=== PATIENT | female | born 1930 | race Caucasian/White ===

== ENCOUNTER 2016-06-03 19:44 | Inpatient (IN) | payer OTHER, MEDICARE ==
[~2016-06-03] VITALS: Ht 154.9 cm; Wt 69.0 kg
[~2016-06-03 19:44] MED LIST: ACET325T80 PO; AMLO2.5T PO; ATOR10TA PO; BENA20TA2 PO; CHOL100062 PO; CLOP75TA33 PO; CYAN10009 PO; DIVA125C PO; ESCI10TA PO; LACT1CAP57 PO; LORA0.5T PO; MULT1TAB72 PO; QUET25TA PO; TRAZ150T75 PO
[2016-06-03] MEDS ORDERED: AMLO2.5T2 PO (20:09)
[2016-06-03] MEDS ORDERED: ATOR10TA PO (20:09)
[2016-06-03] MEDS ORDERED: CYAN10009 PO (20:10)
[2016-06-03] MEDS ORDERED: CHOL100034 PO (20:10)
[2016-06-03] MEDS ORDERED: QUET25TA34 PO (20:10)
[2016-06-03] MEDS ORDERED: BENA20TA78 PO (20:10)
[2016-06-03] MEDS ORDERED: CLOP75TA2 PO (20:10)
[2016-06-03] MEDS ORDERED: DIVA125T3 PO (20:10)
[2016-06-03] MEDS ORDERED: ESCI10TA PO (20:10)
[2016-06-03] MEDS ORDERED: LORA0.5T PO (20:10)
[2016-06-03] MEDS ORDERED: ACET325T80 PO (20:10)
[2016-06-03] MEDS ORDERED: TRAZ150T75 PO (20:10)
[2016-06-03] MEDS ORDERED: [UNRECOGNIZED DRUG - OTHER] PO (20:10)
[2016-06-03] MEDS ORDERED: CLOP75TA33 PO (20:10)
[2016-06-03] MEDS ORDERED: ALBUTEROL SULFATE 2.5 MG/3 ML NEBU NEB ONE (20:30)
[2016-06-03] MEDS ORDERED: IV NORMAL SALINE 500 ML BAG IV ONE (20:30)
[2016-06-03] MEDS ORDERED: IPRATROPIUM BROMIDE 0.5 MG/2.5 ML NEBU NEB ONE (20:30)
[2016-06-03] MEDS ORDERED: IPRATROPIUM BROMIDE 0.5 MG/2.5 ML NEBU ONE (20:50)
[2016-06-03] MEDS ORDERED: ALBUTEROL SULFATE 2.5 MG/ 0.5 ML NEBU ONE (20:51)
[2016-06-03 20:59] LABS: BASOPHILS # (AUTO) 0.1 K/uL (0.0-0.2); BASOPHILS % (AUTO) 0.9 % (0.0-2.0); EOSINOPHILS % (AUTO) 0.3 % (0.0-7.0); HEMATOCRIT 37.2 % (37.0-47.0); HEMOGLOBIN 11.9 g/dL (12.0-16.0); LYMPHOCYTES # (AUTO) 0.7 K/uL (0.8-4.8); LYMPHOCYTES % (AUTO) 10.9 % (20.5-51.5); MEAN CORPUSCULAR HEMOGLOBIN 28.2 uug (27.0-31.0); MEAN CORPUSCULAR HGB CONC 32 g/dL (32.0-37.0); MEAN CORPUSCULAR VOLUME 88.6 fL (81.0-99.0); MONOCYTES # (AUTO) 0.6 K/uL (0.1-1.30); MONOCYTES % (AUTO) 9.1 % (0.0-11.0); NEUTROPHILS # (AUTO) 5.1 K/uL (1.8-8.9); NEUTROPHILS % (AUTO) 78.8 % (38.5-71.5); PLATELET COUNT (AUTO) 193 K/uL (150-450); RED CELL DISTRIBUTION WIDTH 13.5 % (11.5-14.5); WHITE BLOOD COUNT (AUTO) 6.5 K/uL (4.0-11.2)
[2016-06-03 21:07] LABS: CALCIUM 8.7 mg/dL (8.5-10.1); CREATININE 0.9 mg/dL (0.6-1.3); POTASSIUM 4.2 mmol/L (3.5-5.1)
[2016-06-03 21:18] LABS: ALBUMIN 2.3 g/dL (3.4-5.0); BILIRUBIN,DIRECT 0.2 mg/dL (0.0-0.2); BILIRUBIN,TOTAL 0.5 mg/dL (0.2-1.0); TOTAL PROTEIN, SERUM 7.2 g/dL (6.4-8.2)
[2016-06-03 21:19] LABS: LACTIC ACID 0.8 mmol/L (0.4-2.0)
[2016-06-03 21:20] LABS: TROPONIN I 0.042 ng/mL (0.00-0.056)
--- NOTE | 2016-06-03 21:29 | NUR ---
UNABLE TO ACCESS GUILLEN CATHETER BY ER STAFF MEMBERS. DR GALO AWARE
[2016-06-03] MEDS ORDERED: FUROSEMIDE 20 MG/2 ML VIAL IV ONE (21:30)
[2016-06-03] MEDS ORDERED: NITROGLYCERIN OINT 1 GM PACKET TP ONE ×2 (21:30→21:44)
[2016-06-03] MEDS ORDERED: FUROSEMIDE 40 MG/4 ML VIAL ONE (21:44)
--- NOTE | 2016-06-03 22:18 | NUR ---
Rupert pacheco in ED - 06/03/16 at [id number] GALO AWARE OF BLOOD PRESSURE. PT REFUSED TO HAVE PCXR AND HTN PILL
--- NOTE | 2016-06-03 22:46 | NUR ---
TRANSFERED TO 2ND FLOOR, TELE
[2016-06-03 23:21] VITALS: BP 123/57
[2016-06-04 04:00] VITALS: BP 115/61
[2016-06-04 07:27] LABS: BASOPHILS % (AUTO) 0.3 % (0.0-2.0); EOSINOPHILS % (AUTO) 0.4 % (0.0-7.0); HEMATOCRIT 36.5 % (37.0-47.0); HEMOGLOBIN 11.6 g/dL (12.0-16.0); LYMPHOCYTES # (AUTO) 0.4 K/uL (0.8-4.8); LYMPHOCYTES % (AUTO) 6.4 % (20.5-51.5); MEAN CORPUSCULAR HEMOGLOBIN 28.3 uug (27.0-31.0); MEAN CORPUSCULAR HGB CONC 32 g/dL (32.0-37.0); MEAN CORPUSCULAR VOLUME 89.1 fL (81.0-99.0); MONOCYTES # (AUTO) 0.7 K/uL (0.1-1.30); MONOCYTES % (AUTO) 9.7 % (0.0-11.0); NEUTROPHILS # (AUTO) 5.8 K/uL (1.8-8.9); NEUTROPHILS % (AUTO) 83.2 % (38.5-71.5); PLATELET COUNT (AUTO) 212 K/uL (150-450); RED CELL DISTRIBUTION WIDTH 13.4 % (11.5-14.5); WHITE BLOOD COUNT (AUTO) 6.9 K/uL (4.0-11.2)
[2016-06-04 07:34] LABS: CALCIUM 8.5 mg/dL (8.5-10.1); CREATININE 0.8 mg/dL (0.6-1.3); POTASSIUM 4.1 mmol/L (3.5-5.1)
[2016-06-04 08:00] VITALS: BP 111/86
--- NOTE | 2016-06-04 08:00 | NUR ---
RESTING NO RESPIRATORY DISTRESS CONTINUE ON O2 AT 3L /MIN VIA N/C HOB UP AT ALL TIME on fall and aspiration precaution bed alarm on and call madden in reach
[2016-06-04 08:42] LABS: BAND % (MANUAL) 30 % (0-10); BASOPHILS % (MANUAL) 1 % (0-2); EOSINOPHILS % (MANUAL) 1 % (0-8); LYMPHOCYTES % (MANUAL) 4 % (20-40); MONOCYTES % (MANUAL) 9 % (2-10); NEUTROPHILS % (MANUAL) 55 % (42-75)
[2016-06-04 08:43] LABS: PLATELET ESTIMATE ADEQUATE
[2016-06-04] MEDS ORDERED: LORAZEPAM 0.5 MG TABLET PO PRN (10:00)
[2016-06-04] MEDS ORDERED: ACETAMINOPHEN 325 MG TABLET PO PRN (10:00)
[2016-06-04] MEDS ORDERED: [UNRECOGNIZED DRUG - OTHER] PO SCH (10:00)
[2016-06-04] MEDS: CYANOCOBALAMIN 1,000 MCG TABLET PO SCH (11:08)
[2016-06-04] MEDS: MULTIVIT, IRON, MIN NO. 8, FA TABLET PO SCH (11:09)
[2016-06-04] MEDS: CHOLECALCIFEROL 1,000 UNIT TABLET PO SCH (11:09)
[2016-06-04] MEDS: ESCITALOPRAM OXALATE 10 MG TABLET PO SCH (11:09)
[2016-06-04] MEDS: DIVALPROEX 125 MG TABLET.DR PO SCH ×3 (11:09→17:42)
[2016-06-04] MEDS: CLOPIDOGREL 75 MG TABLET PO SCH (11:10)
[2016-06-04] MEDS: QUETIAPINE FUMARATE 25 MG TABLET PO SCH ×2 (11:10→17:42)
[2016-06-04] MEDS: BENAZEPRIL HCL 20 MG TABLET PO SCH (11:10)
[2016-06-04] MEDS: AMLODIPINE 2.5 MG TABLET PO SCH (11:10)
[2016-06-04 11:44] VITALS: BP 119/60
--- NOTE | 2016-06-04 12:00 | NUR ---
DR IRIZARRY SEE PATIENT AND LAB RESULT AND DISCUSS WITH FAMILY DAUGHTER AT BEDSIDE NEW ORDER IN CHART
[2016-06-04 16:06] VITALS: BP 112/48
--- NOTE | 2016-06-04 17:00 | NUR ---
RESTING WELL NO RESPIRATORY DISTRESS NO PAIN HEMODYNAMIC STATUS STABLE ON FALL /ASPIRATION PRECAUTION BED SAFETY MEASURE PROVIDED CALL ESPINOZA IN REACH AND FAMILY AT BEDSIDE
[2016-06-04 19:00] VITALS: BP 125/59
[2016-06-04] MEDS: TRAZODONE 100 MG TABLET PO SCH (21:00)
[2016-06-04] MEDS: Z GUARD REMEDY PASTE 57 GM TUBE TOP SCH (21:00)
[2016-06-04] MEDS: ATORVASTATIN 10 MG TABLET PO SCH (21:00)
[2016-06-05 00:05] VITALS: BP 104/50
[2016-06-05 04:00] VITALS: BP 108/52
--- NOTE | 2016-06-05 08:00 | NUR ---
Pt very confused, farsi speaking. Pt pulled out IV. Restarted IV on left hand 20 gauge. Pt had poor appetite. Lung sounds diminished on lower lobes. Noted bruising on left hip area and behind the knee bilateral. Heel floated. Pt needed assistance during breakfast. Fall precaution implemented. Bed alarm on. Pt kept on simple mask on 4 liters with saturation on 94%. Pt frequently pulling out mask encouraged family members to please put back mask on hetal unless pt is eating secondary to pt desaturates to 82% when not on simple mask oxygen - family members verbalized understanding.
[2016-06-05] MEDS: QUETIAPINE FUMARATE 25 MG TABLET PO SCH ×2 (08:54→16:47)
[2016-06-05] MEDS: DIVALPROEX 125 MG TABLET.DR PO SCH ×4 (08:54→20:48)
[2016-06-05] MEDS: MULTIVIT, IRON, MIN NO. 8, FA TABLET PO SCH (08:54)
[2016-06-05] MEDS: CHOLECALCIFEROL 1,000 UNIT TABLET PO SCH (08:55)
[2016-06-05] MEDS: CLOPIDOGREL 75 MG TABLET PO SCH (08:55)
[2016-06-05] MEDS: ESCITALOPRAM OXALATE 10 MG TABLET PO SCH (08:55)
[2016-06-05] MEDS: CYANOCOBALAMIN 1,000 MCG TABLET PO SCH (08:55)
[2016-06-05] MEDS: BENAZEPRIL HCL 20 MG TABLET PO SCH (08:57)
[2016-06-05] MEDS: AMLODIPINE 2.5 MG TABLET PO SCH (08:57)
[2016-06-05] MEDS: Z GUARD REMEDY PASTE 57 GM TUBE TOP SCH ×2 (08:59→20:49)
[2016-06-05 12:03] VITALS: BP 111/52
--- NOTE | 2016-06-05 13:00 | NUR ---
Pt too lethargic depakote held.
--- NOTE | 2016-06-05 16:00 | NUR ---
Dr Harding Notified of pt being too lethargic questionable from depakote and seroquel. Request Dr harding to change depakote to q 8 hrs instead of TID due to pharmacy protocol of timing -that TID's doses are too close to one another. Notified of diminshed lung sounds with crackles on the lower base. new order received for lasix.
[2016-06-05 16:04] VITALS: BP 104/53
[2016-06-05 16:40] LABS: BASOPHILS # (AUTO) 0.1 K/uL (0.0-0.2); BASOPHILS % (AUTO) 0.6 % (0.0-2.0); EOSINOPHILS # (AUTO) 0.2 K/uL (0.0-0.7); EOSINOPHILS % (AUTO) 1.8 % (0.0-7.0); HEMATOCRIT 34.8 % (37.0-47.0); HEMOGLOBIN 11.8 g/dL (12.0-16.0); LYMPHOCYTES # (AUTO) 0.6 K/uL (0.8-4.8); LYMPHOCYTES % (AUTO) 7.3 % (20.5-51.5); MEAN CORPUSCULAR HEMOGLOBIN 29.9 uug (27.0-31.0); MEAN CORPUSCULAR HGB CONC 34 g/dL (32.0-37.0); MEAN CORPUSCULAR VOLUME 88.5 fL (81.0-99.0); MONOCYTES # (AUTO) 0.6 K/uL (0.1-1.30); MONOCYTES % (AUTO) 7.4 % (0.0-11.0); NEUTROPHILS # (AUTO) 6.9 K/uL (1.8-8.9); NEUTROPHILS % (AUTO) 82.9 % (38.5-71.5); PLATELET COUNT (AUTO) 240 K/uL (150-450); RED BLOOD CELL COUNT(AUTO) 3.93 MIL/uL (4.20-5.40); RED CELL DISTRIBUTION WIDTH 13.3 % (11.5-14.5); WHITE BLOOD COUNT (AUTO) 8.4 K/uL (4.0-11.2)
[2016-06-05] MEDS: FUROSEMIDE 40 MG/4 ML VIAL IV SCH (16:47)
[2016-06-05 16:48] LABS: BILIRUBIN,TOTAL 0.5 mg/dL (0.2-1.0); CALCIUM 8.8 mg/dL (8.5-10.1); CREATININE 0.8 mg/dL (0.6-1.3); MAGNESIUM 2.3 mg/dL (1.8-2.4); PHOSPHOROUS 4.3 mg/dL (2.5-4.9)
--- NOTE | 2016-06-05 18:02 | NUR ---
Pt has good appetite for dinner. No fall noted this shift and IV on left hand #20 gauge remains intact - PLAN OF CARE EFFECTIVE. Pt changed diaper soaked. Lasix given earlier -unable to measure output secondary to pt is incontinent.
[2016-06-05 19:00] VITALS: BP 110/50
[2016-06-05] MEDS: ATORVASTATIN 10 MG TABLET PO SCH (20:47)
[2016-06-05] MEDS: TRAZODONE 100 MG TABLET PO SCH (20:53)
[2016-06-05 23:42] VITALS: BP 121/57
[2016-06-06 04:00] VITALS: BP 141/62
[2016-06-06] MEDS: FUROSEMIDE 40 MG/4 ML VIAL IV SCH ×2 (04:36→08:41)
[2016-06-06] MEDS: DIVALPROEX 125 MG TABLET.DR PO SCH ×3 (05:58→21:35)
[2016-06-06 07:00] LABS: BASOPHILS % (AUTO) 0.3 % (0.0-2.0); EOSINOPHILS # (AUTO) 0.1 K/uL (0.0-0.7); EOSINOPHILS % (AUTO) 1.3 % (0.0-7.0); HEMATOCRIT 38.2 % (37.0-47.0); HEMOGLOBIN 12.3 g/dL (12.0-16.0); LYMPHOCYTES # (AUTO) 0.7 K/uL (0.8-4.8); LYMPHOCYTES % (AUTO) 8.8 % (20.5-51.5); MEAN CORPUSCULAR HEMOGLOBIN 28.6 uug (27.0-31.0); MEAN CORPUSCULAR HGB CONC 32 g/dL (32.0-37.0); MEAN CORPUSCULAR VOLUME 88.7 fL (81.0-99.0); MONOCYTES # (AUTO) 0.6 K/uL (0.1-1.30); MONOCYTES % (AUTO) 7.1 % (0.0-11.0); NEUTROPHILS # (AUTO) 6.8 K/uL (1.8-8.9); NEUTROPHILS % (AUTO) 82.5 % (38.5-71.5); PLATELET COUNT (AUTO) 253 K/uL (150-450); RED CELL DISTRIBUTION WIDTH 13.4 % (11.5-14.5); WHITE BLOOD COUNT (AUTO) 8.2 K/uL (4.0-11.2)
[2016-06-06 07:01] LABS: ALBUMIN 2.1 g/dL (3.4-5.0); BILIRUBIN,TOTAL 0.4 mg/dL (0.2-1.0); CALCIUM 8.8 mg/dL (8.5-10.1); CREATININE 0.7 mg/dL (0.6-1.3); MAGNESIUM 2.1 mg/dL (1.8-2.4); TOTAL PROTEIN, SERUM 7.5 g/dL (6.4-8.2)
--- NOTE | 2016-06-06 08:00 | NUR ---
Pt confused easily be aroused to touch. Pt on simple mask @ 4liters saturation of 96%. Pt is in no acute distress. Call light is within reach.
[2016-06-06] MEDS: ESCITALOPRAM OXALATE 10 MG TABLET PO SCH (08:41)
[2016-06-06] MEDS: CLOPIDOGREL 75 MG TABLET PO SCH (08:41)
[2016-06-06] MEDS: MULTIVIT, IRON, MIN NO. 8, FA TABLET PO SCH (08:42)
[2016-06-06] MEDS: CYANOCOBALAMIN 1,000 MCG TABLET PO SCH (08:42)
[2016-06-06] MEDS: BENAZEPRIL HCL 20 MG TABLET PO SCH (08:42)
[2016-06-06] MEDS: QUETIAPINE FUMARATE 25 MG TABLET PO SCH ×2 (08:42→16:42)
[2016-06-06] MEDS: CHOLECALCIFEROL 1,000 UNIT TABLET PO SCH (08:42)
[2016-06-06] MEDS: AMLODIPINE 2.5 MG TABLET PO SCH (08:42)
[2016-06-06] MEDS: Z GUARD REMEDY PASTE 57 GM TUBE TOP SCH ×2 (08:43→21:46)
[2016-06-06 11:15] LABS: BAND % (MANUAL) 20 % (0-10); EOSINOPHILS % (MANUAL) 2 % (0-8); LYMPHOCYTES % (MANUAL) 10 % (20-40); METAMYELOCYTES % 2 % (0-1); MONOCYTES % (MANUAL) 10 % (2-10); MYELOCYTES % 1 % (0-0); NEUTROPHILS % (MANUAL) 55 % (42-75)
[2016-06-06 11:16] LABS: PLATELET ESTIMATE ADEQUATE
[2016-06-06 11:34] VITALS: BP 129/58
[2016-06-06] MEDS ORDERED: FUROSEMIDE 40 MG/4 ML VIAL IV SCH (12:00)
--- NOTE | 2016-06-06 13:30 | NUR ---
Dr Bazan here to see pt Notified of ABG result with elevated PCO2 of 73.9. No new order received and consult for respiratory called in DR OCHOA.
[2016-06-06 13:52] LABS: ABG BASE EXCESS 16.2 mmol/L; ABG HCO3 44.7 mmol/L; ABG PCO2 73.9 mmHg (35.0-45.0); ABG PO2 89.3 mmHg (75.0-100.0); ABG SITE LEFT BRACHIAL; ABG TOTAL HEMOGLOBIN 13.3 G/dL (12.0-16.0); COHb 1.2 % (0.5-1.5); MetHb 0.2 % (0.0-1.5); O2Hb 95.4 % (94.0-97.0)
--- NOTE | 2016-06-06 14:00 | NUR ---
held Depakote and Seroquel secondary to pt too lethargic.
[2016-06-06 15:01] LABS: *BILIRUBIN,URIN NEGATIVE (NEGATIVE); *BLOOD, URINE Trace-lysed (NEGATIVE); *CLARITY,URINE CLEAR (CLEAR); *COLOR,URINE YELLOW (YELLOW); *KETONES,URINE NEGATIVE (NEGATIVE); *PROTEIN,URINE NEGATIVE (NEGATIVE); *UROBILINOGEN,URINE 0.2 E.U./dl (NORMAL); LEUKOCYTE ESTERASE ,URINE NEGATIVE (NEGATIVE); NITRITE, URINE NEGATIVE (NEGATIVE); PH,URINE 5.5 (5.0-8.0); UGLUCOSE NEGATIVE (NEGATIVE)
[2016-06-06 15:39] LABS: BACTERIA,URINE MODERATE /HPF (NONE SEEN); SQUAMOUS EPITHELIAL CELL,UR FEW /HPF (NONE SEEN); WBC,URINE 0-3 /HPF (0-3)
[2016-06-06 15:44] VITALS: BP 114/56
[2016-06-06] MEDS ORDERED: ALBUTEROL SULFATE 2.5 MG/3 ML NEBU NEB PRN (17:15)
[2016-06-06] MEDS ORDERED: MAGNESIUM HYDROXIDE 30 ML LIQUID UDC PO PRN (18:00)
[2016-06-06] MEDS: ACETAzolamide SODIUM 500 MG VIAL IV SCH (18:02)
--- NOTE | 2016-06-06 18:30 | NUR ---
Pt is in no acute distress. Plan of care effective no fall and pt's pain managed with morphine as ordered.
--- NOTE | 2016-06-06 18:30 | NUR ---
Diamox given as ordered per Dr Nguyen. New orders received and carried out. Call light is within reach.
[2016-06-06 19:00] VITALS: BP 129/63
--- NOTE | 2016-06-06 19:20 | NUR ---
PATIENT AWAKE, RESPONSIVE TO VERBAL STIMULATION, NO SOB NO CHEST PAIN NOTED, ON OXYGEN THERAPHY FOR SOB, ON 6LITERS VIA MASK, OXYGEN SAT 95-96% NO COMPLAIN OF PAIN AT THIS TIME. CONT TO MONITOR.
[2016-06-06] MEDS: TRAZODONE 100 MG TABLET PO SCH (21:35)
[2016-06-06] MEDS: ATORVASTATIN 10 MG TABLET PO SCH (21:35)
[2016-06-07 04:00] VITALS: BP 125/60
[2016-06-07] MEDS: DIVALPROEX 125 MG TABLET.DR PO SCH ×3 (06:23→23:21)
[2016-06-07 06:30] LABS: BASOPHILS % (AUTO) 0.6 % (0.0-2.0); EOSINOPHILS # (AUTO) 0.2 K/uL (0.0-0.7); EOSINOPHILS % (AUTO) 2.6 % (0.0-7.0); HEMATOCRIT 40.1 % (37.0-47.0); LYMPHOCYTES # (AUTO) 0.7 K/uL (0.8-4.8); LYMPHOCYTES % (AUTO) 9.4 % (20.5-51.5); MEAN CORPUSCULAR HEMOGLOBIN 28.9 uug (27.0-31.0); MEAN CORPUSCULAR HGB CONC 32 g/dL (32.0-37.0); MEAN CORPUSCULAR VOLUME 89.2 fL (81.0-99.0); MONOCYTES # (AUTO) 0.5 K/uL (0.1-1.30); MONOCYTES % (AUTO) 6.7 % (0.0-11.0); NEUTROPHILS # (AUTO) 6.3 K/uL (1.8-8.9); NEUTROPHILS % (AUTO) 80.7 % (38.5-71.5); PLATELET COUNT (AUTO) 284 K/uL (150-450); RED CELL DISTRIBUTION WIDTH 13.4 % (11.5-14.5); WHITE BLOOD COUNT (AUTO) 7.7 K/uL (4.0-11.2)
--- NOTE | 2016-06-07 06:49 | NUR ---
PATIENT AWAKE, VERBALLY RESPONSIVE, ON OXYGEN MASK AT 6LITER, OXYGEN SAT 95-96% NO S/S OF PAIN NO SOB NO CHEST PAIN NOTED, TURN AND REPOSITION, PATIENT HAD LARGE BM KEPT CLEAN AND DRY.
[2016-06-07 07:20] LABS: ALBUMIN 2.3 g/dL (3.4-5.0); BILIRUBIN,TOTAL 0.3 mg/dL (0.2-1.0); CALCIUM 9.1 mg/dL (8.5-10.1); CREATININE 0.7 mg/dL (0.6-1.3); MAGNESIUM 2.4 mg/dL (1.8-2.4); PHOSPHOROUS 4.8 mg/dL (2.5-4.9); POTASSIUM 4.2 mmol/L (3.5-5.1); TOTAL PROTEIN, SERUM 7.1 g/dL (6.4-8.2)
[2016-06-07 07:30] LABS: THYROID STIMULATING HORMONE 0.914 mIU/mL (0.358-3.740)
[2016-06-07 07:34] LABS: FOLIC ACID 12.4 NG/ML (8.6-58.9)
--- NOTE | 2016-06-07 08:00 | NUR ---
Lung sounds much clearer from yesterday. Able to taper oxygen to 2 liters via n/c with saturation of 91- 92%. Mittens not used. Iv on left hand intact. Call light is within reach. Pt easily aroused by touch. Pt had good appetite. Call light is within reach.
[2016-06-07] MEDS: ESCITALOPRAM OXALATE 10 MG TABLET PO SCH (08:50)
[2016-06-07] MEDS: CLOPIDOGREL 75 MG TABLET PO SCH (08:50)
[2016-06-07] MEDS: MULTIVIT, IRON, MIN NO. 8, FA TABLET PO SCH (08:50)
[2016-06-07] MEDS: QUETIAPINE FUMARATE 25 MG TABLET PO SCH ×3 (08:50→16:43)
[2016-06-07] MEDS: CYANOCOBALAMIN 1,000 MCG TABLET PO SCH (08:50)
[2016-06-07] MEDS: CHOLECALCIFEROL 1,000 UNIT TABLET PO SCH (08:50)
[2016-06-07] MEDS: BENAZEPRIL HCL 20 MG TABLET PO SCH (08:52)
[2016-06-07] MEDS: AMLODIPINE 2.5 MG TABLET PO SCH (08:52)
[2016-06-07] MEDS: ACETAzolamide SODIUM 500 MG VIAL IV SCH (08:55)
[2016-06-07] MEDS ORDERED: FUROSEMIDE 40 MG/4 ML VIAL IV SCH ×2 (09:00)
[2016-06-07] MEDS: Z GUARD REMEDY PASTE 57 GM TUBE TOP SCH ×2 (09:04→20:45)
[2016-06-07 11:36] VITALS: BP 115/55
[2016-06-07 16:13] VITALS: BP 106/63
--- NOTE | 2016-06-07 17:38 | NUR ---
ZOFRAN, MORPHINE PROTONIX - taken out of pyxis by shift superintendent
--- NOTE | 2016-06-07 18:46 | NUR ---
Pt is in no acute distress. Pt's psych meds held secondary to pt was too lethargic throughout day. Pt more awake now and attempting to pull IV and taking out oxygen. Restarted soft mittens. Call light is within reach.
--- NOTE | 2016-06-07 19:00 | NUR ---
PATIENT AWAKE , RESPONSE TO VERBAL AND TACTILE STIMULI, NO SOB NO CHEST PAIN NOTED, ON 2LITER OXYGEN VIA NC. OXYGEN SAT WITHIN THE RANGE 92%, SKIN WARM AND DRY TO TOUCH. KEPT CLEAN AND DRY. NO S/S OF DISTRESS.
[2016-06-07 20:00] VITALS: BP 122/64
[2016-06-07] MEDS: TRAZODONE 100 MG TABLET PO SCH (20:38)
[2016-06-07] MEDS: ATORVASTATIN 10 MG TABLET PO SCH (20:39)
[2016-06-08 04:00] VITALS: BP 120/64
[2016-06-08] MEDS: DIVALPROEX 125 MG TABLET.DR PO SCH ×3 (06:30→22:11)
--- NOTE | 2016-06-08 06:56 | NUR ---
PATIENT SLEPT MOST OF THE NIGHT, NO SOB, NO CHEST PAIN NOTED, TOLERATE CURRENT DIET, NO CHOKING, NO COUGHING NOTED, KEPT CLEAN AND DRY. OXYGEN SAT WNL 90-92% NO S/S OF DISTRESS.
[2016-06-08 07:00] LABS: CALCIUM 9.6 mg/dL (8.5-10.1); CREATININE 0.7 mg/dL (0.6-1.3); MAGNESIUM 2.2 mg/dL (1.8-2.4); PHOSPHOROUS 3.6 mg/dL (2.5-4.9)
[2016-06-08 07:08] LABS: EOSINOPHILS # (AUTO) 0.2 K/uL (0.0-0.7); EOSINOPHILS % (AUTO) 2.4 % (0.0-7.0); HEMATOCRIT 41.2 % (37.0-47.0); HEMOGLOBIN 13.4 g/dL (12.0-16.0); LYMPHOCYTES # (AUTO) 0.8 K/uL (0.8-4.8); LYMPHOCYTES % (AUTO) 9.6 % (20.5-51.5); MEAN CORPUSCULAR HEMOGLOBIN 29.1 uug (27.0-31.0); MEAN CORPUSCULAR HGB CONC 33 g/dL (32.0-37.0); MEAN CORPUSCULAR VOLUME 89.2 fL (81.0-99.0); MONOCYTES # (AUTO) 0.2 K/uL (0.1-1.30); MONOCYTES % (AUTO) 3.1 % (0.0-11.0); NEUTROPHILS # (AUTO) 6.6 K/uL (1.8-8.9); NEUTROPHILS % (AUTO) 84.9 % (38.5-71.5); PLATELET COUNT (AUTO) 292 K/uL (150-450); RED BLOOD CELL COUNT(AUTO) 4.62 MIL/uL (4.20-5.40); RED CELL DISTRIBUTION WIDTH 13.5 % (11.5-14.5); WHITE BLOOD COUNT (AUTO) 7.8 K/uL (4.0-11.2)
[2016-06-08] MEDS: QUETIAPINE FUMARATE 25 MG TABLET PO SCH ×2 (09:00→17:41)
--- NOTE | 2016-06-08 09:00 | NUR ---
No s/s of distress noted. Patient seem too sedated, psych med was hold. Patient is 2 L NC. Mittens maintained, circulation assessed and intact. Will continue monitoring
[2016-06-08 09:09] LABS: ABG BASE EXCESS 7.1 mmol/L; ABG HCO3 33.2 mmol/L; ABG PCO2 52.3 mmHg (35.0-45.0); ABG SITE LEFT RADIAL; ABG TOTAL HEMOGLOBIN 14.3 G/dL (12.0-16.0); COHb 1.5 % (0.5-1.5); MetHb 0.2 % (0.0-1.5); O2Hb 90.7 % (94.0-97.0); VENT MODE Nasal Cannula
[2016-06-08] MEDS: MULTIVIT, IRON, MIN NO. 8, FA TABLET PO SCH (09:25)
[2016-06-08] MEDS: CYANOCOBALAMIN 1,000 MCG TABLET PO SCH (09:26)
[2016-06-08] MEDS: CLOPIDOGREL 75 MG TABLET PO SCH (09:27)
[2016-06-08] MEDS: CHOLECALCIFEROL 1,000 UNIT TABLET PO SCH (09:27)
[2016-06-08] MEDS: AMLODIPINE 2.5 MG TABLET PO SCH (09:27)
[2016-06-08] MEDS: ESCITALOPRAM OXALATE 10 MG TABLET PO SCH (09:27)
[2016-06-08] MEDS: Z GUARD REMEDY PASTE 57 GM TUBE TOP SCH ×2 (09:27→20:16)
[2016-06-08] MEDS: ACETAzolamide SODIUM 500 MG VIAL IV SCH (09:28)
[2016-06-08] MEDS: BENAZEPRIL HCL 20 MG TABLET PO SCH (09:28)
[2016-06-08 11:42] VITALS: BP 120/62
[2016-06-08 11:51] LABS: BAND % (MANUAL) 1 % (0-10); EOSINOPHILS % (MANUAL) 2 % (0-8); LYMPHOCYTES % (MANUAL) 8 % (20-40); MONOCYTES % (MANUAL) 10 % (2-10); NEUTROPHILS % (MANUAL) 79 % (42-75)
--- NOTE | 2016-06-08 12:00 | NUR ---
Destiny notified that one mitten was removed for comfort, but patient continue to removed NC. O2 sat dropped to 85%. Will continue maintaining mitten for safety. Will continue monitoring throughout the day
[2016-06-08 15:21] VITALS: BP 116/64
--- NOTE | 2016-06-08 18:16 | NUR ---
PATIENT IS AWAKE AND DURING THE AFTERNOON .. DAUGHTER AND SON WERE AT THE BESIDE. MITTEN STILL IN PLACE. PICTURES WERE TAKEN AND PLACED IN CHART FOR POSSIBLE DISCHARGE. SAFETY AND COMFORT PROVIDED DURING THE DAY. WILL CONTINUE MONITORING.
[2016-06-08 19:00] VITALS: BP 121/72
--- NOTE | 2016-06-08 19:00 | NUR ---
PATIENT AWAKE BUT FORGETFUL, PATIENT TRYING TO REMOVED OXYGEN, AND IV, CONTINUE TO REOIENT THE PATIENT BUT NOT EFFECTIVE, HAND MITTENS IN PLACE, CHECK FOR CIRCULATION AND PLACEMENT, CONT TO MONITOR
[2016-06-08] MEDS: ATORVASTATIN 10 MG TABLET PO SCH (20:03)
[2016-06-08] MEDS: TRAZODONE 100 MG TABLET PO SCH (20:04)
--- NOTE | 2016-06-08 20:34 | NUR ---
SEEN BY DR AMOS PSYCHIARTIST, WITH NEW ORDER. ORDER NOTED AND CARRIED OUT. Addendum: 06/08/16 at 2036 by MAYANK BETANCOURT RN SEEN BY DR. AMOS PSYCHIATRIST WITH NEW ORDER, ORDER NOTED AND CARRIED OUT IN ERROR.
--- NOTE | 2016-06-08 20:38 | NUR ---
SEEN BY DR BLANCO PSYCHIATRIST WITH NEW ORDER.
--- NOTE | 2016-06-09 05:00 | NUR ---
PATIENT ASLEEP BUT AROUSABLE, RESPIRATION EVEN AND UNLABORED, NO S/S OF PAIN NOR DISCOMFORT, OXYGEN SAT 92% AT 2LITERS NC, TURN REPOSITION EVERY TWO HOURS, NO S/S OF DISTRESS.
[2016-06-09 05:29] VITALS: BP 115/62
[2016-06-09] MEDS: DIVALPROEX 125 MG TABLET.DR PO SCH (06:00)
[2016-06-09 06:14] LABS: BASOPHILS % (AUTO) 0.1 % (0.0-2.0); EOSINOPHILS # (AUTO) 0.3 K/uL (0.0-0.7); EOSINOPHILS % (AUTO) 4.2 % (0.0-7.0); HEMATOCRIT 40.5 % (37.0-47.0); HEMOGLOBIN 13.7 g/dL (12.0-16.0); LYMPHOCYTES % (AUTO) 12.9 % (20.5-51.5); MEAN CORPUSCULAR HEMOGLOBIN 29.8 uug (27.0-31.0); MEAN CORPUSCULAR HGB CONC 34 g/dL (32.0-37.0); MEAN CORPUSCULAR VOLUME 88.5 fL (81.0-99.0); MONOCYTES # (AUTO) 0.4 K/uL (0.1-1.30); MONOCYTES % (AUTO) 4.8 % (0.0-11.0); NEUTROPHILS # (AUTO) 5.7 K/uL (1.8-8.9); PLATELET COUNT (AUTO) 298 K/uL (150-450); RED BLOOD CELL COUNT(AUTO) 4.58 MIL/uL (4.20-5.40); RED CELL DISTRIBUTION WIDTH 13.6 % (11.5-14.5); WHITE BLOOD COUNT (AUTO) 7.4 K/uL (4.0-11.2)
--- NOTE | 2016-06-09 06:47 | NUR ---
PATIENT SLEPT MOST OF THE NIGHT, MEDICATION DEPAKOTE HELP PATIENT TOO SLEEPY, OXYGEN SAT WNL, 2L NC VIA OXYGEN SAT 92%. NO S/S OF DISTRESS.
[2016-06-09 07:01] LABS: ALBUMIN 2.1 g/dL (3.4-5.0); BILIRUBIN,TOTAL 0.2 mg/dL (0.2-1.0); CALCIUM 9.6 mg/dL (8.5-10.1); CREATININE 0.8 mg/dL (0.6-1.3); MAGNESIUM 2.1 mg/dL (1.8-2.4); PHOSPHOROUS 4.4 mg/dL (2.5-4.9); TOTAL PROTEIN, SERUM 7.6 g/dL (6.4-8.2)
[2016-06-09] MEDS ORDERED: ALBU2.5V7 NEB (07:48)
[2016-06-09] MEDS ORDERED: ESCI10TA PO (07:48)
[2016-06-09] MEDS ORDERED: QUET25TA PO (07:48)
--- NOTE | 2016-06-09 08:00 | NUR ---
arouses to name with light sternal stimuli....promptly falls back to sleep. will hold po meds at this time to avoid aspiration. hob up at 20-30 degrees. bilateral wrist restraints remain on at this time.
[2016-06-09] MEDS: ESCITALOPRAM OXALATE 10 MG TABLET PO SCH (08:29)
[2016-06-09] MEDS: ACETAzolamide SODIUM 500 MG VIAL IV SCH ×2 (08:29→08:40)
[2016-06-09] MEDS: AMLODIPINE 2.5 MG TABLET PO SCH (08:30)
[2016-06-09] MEDS: CLOPIDOGREL 75 MG TABLET PO SCH (08:30)
[2016-06-09] MEDS: BENAZEPRIL HCL 20 MG TABLET PO SCH (08:30)
[2016-06-09] MEDS: CYANOCOBALAMIN 1,000 MCG TABLET PO SCH (08:31)
[2016-06-09] MEDS: MULTIVIT, IRON, MIN NO. 8, FA TABLET PO SCH (08:31)
[2016-06-09] MEDS: CHOLECALCIFEROL 1,000 UNIT TABLET PO SCH (08:31)
[2016-06-09] MEDS: Z GUARD REMEDY PASTE 57 GM TUBE TOP SCH (08:54)
[2016-06-09] MEDS ORDERED: QUETIAPINE FUMARATE 25 MG TABLET PO SCH (09:00)
[2016-06-09 11:48] VITALS: BP 103/57
--- NOTE | 2016-06-09 12:03 | NUR ---
The patient will be discharged today to [facility] [ ; [address] [place] [address]] via [facility]. Her daughter and son are aware and in agreement of the discharge. Clemencia from [facility] confirmed that they will admit the patient today. Her RN, Jose A, is updated on the discharge plan and will call the facility for the report.
--- NOTE | 2016-06-09 12:23 | NUR ---
REPORT CALLED...SPOKE TO FRANDY AT [facility]...PT TO BE DISCHARGED THIS DAY...DAUGHTER AND SON CALLED REGARDING TRANSPORT...DAUGHTER AT BEDSIDE
--- NOTE | 2016-06-09 13:37 | NUR ---
DISCHARGED PER NEIL TO SNF IN STABLE CONDITION...SON AT BEDSIDE...REPORT ALLED EARLIER TO "FRANDY"XIN...PT IN NO DISTRESS AT TIME OF DISCHARGE
== END 2016-06-09 13:30 | DRG 137 ==
LOC: ER 19:44 → MERGE 22:36 → TELE 22:36 → MED 06-06 21:00
PROVIDERS: ADMIT Internal Medicine; ATTEND Internal Medicine
DX: J15.6 Pneumonia due to other Gram-negative bacteria (principal); J96.21 Acute and chronic respiratory failure with hypoxia; I50.33 Acute on chronic diastolic (congestive) heart failure; G92 Toxic encephalopathy; E87.3 Alkalosis; K86.89 Other specified diseases of pancreas; R53.2 Functional quadriplegia; F03.91 Unspecified dementia, unspecified severity, with behavioral disturbance; F03.90 Unspecified dementia, unspecified severity, without behavioral disturbance, psychotic disturbance, mood disturbance, and anxiety; J44.0 Chronic obstructive pulmonary disease with (acute) lower respiratory infection; K76.1 Chronic passive congestion of liver; F39 Unspecified mood [affective] disorder; Z88.0 Allergy status to penicillin; J96.22 Acute and chronic respiratory failure with hypercapnia; F32.9 Major depressive disorder, single episode, unspecified; E78.5 Hyperlipidemia, unspecified; E44.1 Mild protein-calorie malnutrition; F41.9 Anxiety disorder, unspecified; G47.00 Insomnia, unspecified; I70.0 Atherosclerosis of aorta; N28.1 Cyst of kidney, acquired; Z86.73 Personal history of transient ischemic attack (TIA), and cerebral infarction without residual deficits; Z79.899 Other long term (current) drug therapy
CPT/HCPCS: 36415; 36600; 70030-TC; 71010; 76700; 76770; 82746; 83605; 83735; 84100; 84443; 85025; 86592; 87040; 87400; 92506; 92526; 93005; 93307; 94660; 97001; 97110; 97530; A4663; C1758; J1120; J1940; J3590; J7040

== ENCOUNTER 2016-07-21 18:49 | Inpatient (IN) | payer OTHER, MEDICARE ==
[~2016-07-21] VITALS: Ht 160 cm; Wt 62.6 kg
[~2016-07-21 18:49] MED LIST changes: +ALBU2.5V7 NEB; +AMLO2.5T2 PO; +BENA20TA78 PO; +CHOL100034 PO; +CLOP75TA2 PO; -DIVA125C PO; +DIVA125T3 PO; +[UNRECOGNIZED DRUG - OTHER] PO
[2016-07-21] MEDS ORDERED: GUAI100S9 PO (19:12)
[2016-07-21] MEDS ORDERED: MULT-70 PO (19:12)
[2016-07-21] MEDS ORDERED: LACT1CAP57 PO (19:12)
[2016-07-21] MEDS ORDERED: ASCO250T5 PO (19:12)
--- NOTE | 2016-07-21 19:25 | NUR ---
RECEIVED PT TIN NAD; VSS; SPO2 RA IS 86%. PT IS A/OX1; HX DEMENTIA. PER SON, PT MORE CONFUSED THE LAST FEW DAYS
--- NOTE | 2016-07-21 19:40 | NUR ---
G; AND LABS DRAWN DRAWN PER MD ORDER
[2016-07-21 19:47] LABS: CALCIUM 9.2 mg/dL (8.5-10.1); CREATININE 0.6 mg/dL (0.6-1.3); POTASSIUM 4.1 mmol/L (3.5-5.1)
[2016-07-21 19:48] LABS: ABG BASE EXCESS 4.9 mmol/L; ABG HCO3 30.4 mmol/L; ABG PCO2 47.9 mmHg (35.0-45.0); ABG PO2 62.3 mmHg (75.0-100.0); ABG SITE LEFT RADIAL; ABG TOTAL HEMOGLOBIN 14.2 G/dL (12.0-16.0); COHb 1.8 % (0.5-1.5); MetHb 0.2 % (0.0-1.5); O2Hb 89.9 % (94.0-97.0); VENT MODE ROOM AIR
[2016-07-21 19:49] LABS: BASOPHILS # (AUTO) 0.1 K/uL (0.0-8.0); EOSINOPHILS # (AUTO) 0.2 K/uL (0.0-0.7); EOSINOPHILS % (AUTO) 2.1 % (0.0-7.0); HEMATOCRIT 43.3 % (37-47); HEMOGLOBIN 13.9 G/DL (12.0-16.0); LYMPHOCYTES # (AUTO) 0.9 K/UL (0.8-4.8); LYMPHOCYTES % (AUTO) 11.2 % (20.5-51.5); MEAN CORPUSCULAR HEMOGLOBIN 28.1 UUG (27.0-31.0); MEAN CORPUSCULAR HGB CONC 32 g/dL (32.0-37.0); MEAN CORPUSCULAR VOLUME 87.7 FL (81.0-99.0); MONOCYTES # (AUTO) 0.5 K/UL (0.1-1.30); MONOCYTES % (AUTO) 5.8 % (0.0-11.0); NEUTROPHILS # (AUTO) 6.3 K/UL (1.8-8.9); NEUTROPHILS % (AUTO) 79.9 % (38.5-71.5); PLATELET COUNT (AUTO) 278 K/UL (150-450); RED BLOOD CELL COUNT(AUTO) 4.93 MIL/UL (4.2-5.4); RED CELL DISTRIBUTION WIDTH 14.5 % (11.5-14.5)
[2016-07-21 19:55] LABS: TROPONIN I < 0.017 ng/mL (0.00-0.056)
[2016-07-21 19:59] LABS: ALBUMIN 3.2 g/dL (3.4-5.0); BILIRUBIN,DIRECT 0.1 mg/dL (0.0-0.2); BILIRUBIN,TOTAL 0.5 mg/dL (0.2-1.0); TOTAL PROTEIN, SERUM 8.4 g/dL (6.4-8.2)
[2016-07-21 20:05] LABS: LACTIC ACID 0.6 mmol/L (0.4-2.0)
--- NOTE | 2016-07-21 20:12 | NUR ---
PT TO CT WITHCT TECH AND SON; PT IN NAD
--- NOTE | 2016-07-21 20:34 | NUR ---
PT SON REQUESTED A FEMALE TO GET PT UNDRESSED AND PUT INTO A HOSPITAL GOWN; CHA MCNAIR FROM [facility] CAME TO HELP WITH THAT.
--- NOTE | 2016-07-21 20:38 | NUR ---
DR CORMIER ORDERED A I&O CATH AND URINE SPECIMEN; SON REQUESTED A FEMALE RN TO DO PROCEDURE; [facility] NURSING COLLECTION TECHNICIAN NOTIFIED AND AT BEDSIDE.
--- NOTE | 2016-07-21 20:59 | NUR ---
DR IRIZARRY SERVICE CALLED FOR ADMISSION
--- NOTE | 2016-07-21 21:00 | NUR ---
RECEIVED TELE BED 209 FROM HOLLIE LAUREN
[2016-07-21 22:18] LABS: *BILIRUBIN,URIN NEGATIVE (NEGATIVE); *BLOOD, URINE NEGATIVE (NEGATIVE); *CLARITY,URINE CLEAR (CLEAR); *COLOR,URINE YELLOW (YELLOW); *KETONES,URINE NEGATIVE (NEGATIVE); *PROTEIN,URINE NEGATIVE (NEGATIVE); LEUKOCYTE ESTERASE ,URINE NEGATIVE (NEGATIVE); NITRITE, URINE NEGATIVE (NEGATIVE); UGLUCOSE NEGATIVE (NEGATIVE)
--- NOTE | 2016-07-21 22:25 | NUR ---
PT WAS BROUGHT IN TO FLOOR VIA GURNEY, ADMITTED TO TELE UNDER CARE OF DR. LEE. MATSON. DX: ENCEPHALOPATHY, GEN. WEAKNESS. INITIATE ADMISSION ASSESSMENTS. BELONGING LISTS REVIEWED. WILL CALL FOR ORDERS.
[2016-07-21 22:27] LABS: MUCUS,URINE MODERATE /LPF (0-FEW); RBC,URINE 0-3 /HPF (0-3); SQUAMOUS EPITHELIAL CELL,UR FEW /HPF (NONE SEEN); WBC,URINE 0-3 /HPF (0-3)
[2016-07-21 22:49] VITALS: BP 122/63
[2016-07-22] MEDS ORDERED: ONDANSETRON 4 MG/2 ML VIAL IV PRN (02:15)
[2016-07-22] MEDS ORDERED: ACETAMINOPHEN 325 MG TABLET PO PRN (02:15)
[2016-07-22] MEDS ORDERED: diphenhydrAMINE 50 MG/1 ML VIAL ONE (03:45)
[2016-07-22 04:00] VITALS: BP 117/69
[2016-07-22 06:32] LABS: CALCIUM 8.5 mg/dL (8.5-10.1); CREATININE 0.6 mg/dL (0.6-1.3); POTASSIUM 4.4 mmol/L (3.5-5.1)
[2016-07-22 06:36] LABS: MAGNESIUM 2.1 mg/dL (1.8-2.4)
--- NOTE | 2016-07-22 06:41 | NUR ---
PT IN BED, SLEPT MOST SHIFT, FARSI SPEAKING. TURNED AND REPOSITIONED. SINUS MAGGIE, HIGH 50'S WITH 1ST DEGREE BLOCK ON TELE, IN NO ACUTE SIGNS OF DISTRESS. SAFETY MAINTAINED. CALL LIGHT WITHIN REACH.
[2016-07-22 06:57] LABS: BASOPHILS % (AUTO) 0.1 % (0.0-2.0); EOSINOPHILS # (AUTO) 0.2 K/uL (0.0-0.7); EOSINOPHILS % (AUTO) 3.7 % (0.0-7.0); HEMATOCRIT 41.3 % (37-47); HEMOGLOBIN 13.2 G/DL (12.0-16.0); LYMPHOCYTES # (AUTO) 1.1 K/UL (0.8-4.8); MEAN CORPUSCULAR HEMOGLOBIN 28.1 UUG (27.0-31.0); MEAN CORPUSCULAR HGB CONC 32 g/dL (32.0-37.0); MONOCYTES # (AUTO) 0.4 K/UL (0.1-1.30); MONOCYTES % (AUTO) 7.8 % (0.0-11.0); NEUTROPHILS # (AUTO) 3.1 K/UL (1.8-8.9); NEUTROPHILS % (AUTO) 66.4 % (38.5-71.5); PLATELET COUNT (AUTO) 268 K/UL (150-450); RED BLOOD CELL COUNT(AUTO) 4.69 MIL/UL (4.2-5.4); RED CELL DISTRIBUTION WIDTH 14.4 % (11.5-14.5)
[2016-07-22 07:06] LABS: WHITE BLOOD COUNT (AUTO) 4.8 K/UL (4.0-11.2)
[2016-07-22] MEDS: BENAZEPRIL HCL 20 MG TABLET PO SCH (08:32)
[2016-07-22] MEDS: AMLODIPINE 2.5 MG TABLET PO SCH (08:32)
[2016-07-22] MEDS: MULTIVITAMINS,THERAPEUTIC TABLET PO SCH (08:32)
[2016-07-22] MEDS: CYANOCOBALAMIN 1,000 MCG TABLET PO SCH (08:32)
[2016-07-22] MEDS: CHOLECALCIFEROL 1,000 UNIT TABLET PO SCH (08:32)
[2016-07-22] MEDS: CLOPIDOGREL 75 MG TABLET PO SCH (08:32)
[2016-07-22] MEDS: DIVALPROEX 125 MG TABLET.DR PO SCH ×3 (08:32→16:00)
[2016-07-22 11:11] VITALS: BP 99/48
[2016-07-22] MEDS ORDERED: IOHEXOL 350 100 ML INFUS..BTL ONE (12:38)
[2016-07-22] MEDS ORDERED: NORMAL SALINE FLUSH 10 ML DISP.SYRIN ONE (12:38)
[2016-07-22] MEDS ORDERED: IV NORMAL SALINE 250 ML IV ONE (12:39)
--- NOTE | 2016-07-22 12:44 | NUR ---
WOUND CARE CONSULT: PT OFF UNIT AT THIS TIME. PER NURSING STAFF, PT HAS SLIGHT EXCORIATION TO LEFT BUTTOCK. Z GUARD RECOMMENDED. WILL SEE PT PT CONDITION PERMITS. CONTINUE ALL SKIN PROTECTION MEASURES. DISCUSSED WITH NURSING STAFF. SOPHIA SCORE IS 19.
[2016-07-22] MEDS ORDERED: ALBUTEROL SULFATE 2.5 MG/3 ML NEBU NEB PRN (12:45)
[2016-07-22] MEDS ORDERED: Z GUARD REMEDY PASTE 57 GM TUBE TOP PRN (13:00)
[2016-07-22] MEDS: Z GUARD REMEDY PASTE 57 GM TUBE TOP SCH ×2 (14:26→21:52)
[2016-07-22 15:24] VITALS: BP 135/68
[2016-07-22] MEDS: LORAZEPAM 0.5 MG TABLET PO PRN ×2 (15:44→23:55)
[2016-07-22] MEDS: QUETIAPINE FUMARATE 25 MG TABLET PO SCH (16:00)
[2016-07-22 19:00] VITALS: BP 119/66
--- NOTE | 2016-07-22 19:00 | NUR ---
PATIENT AWAKE BUT FORGETFULL, IN BED RESTING, NO SOB NO CHEST PAIN.
--- NOTE | 2016-07-22 20:30 | NUR ---
PATIENT PULLED OUT HER IV, NO BLEEDING NOTED. WITH EPISODES OF AGITATION CONT TO MONITOR.
[2016-07-22] MEDS ORDERED: ATORVASTATIN 10 MG TABLET PO SCH (21:00)
[2016-07-22] MEDS ORDERED: ASCORBIC ACID 250 MG TABLET PO SCH (21:00)
[2016-07-23] MEDS ORDERED: LORAZEPAM 0.5 MG TABLET PO PRN (02:15)
--- NOTE | 2016-07-23 02:18 | NUR ---
PATIENT HAS EPISODES OF AGITATION, CLIMB OOB OF BED, LOOK FOR HER SON, ORIENTED PATIENT THRU PRODUCT SPECIALIST BUT UNABLE TO FOLLOW DUE TO MENTAL HEALTH CONDITION. DR MCGREGOR WAS NOTIFIED, MOTOR EQUIPMENT SERGEANT WITH ORDER.
[2016-07-23] MEDS ORDERED: LORAZEPAM 1 MG TABLET ONE (02:26)
[2016-07-23 04:00] VITALS: BP 153/81
--- NOTE | 2016-07-23 05:09 | NUR ---
PATIENT SLEEP ON AND OFF, DENIES PAIN, NO SOB NO CHEST PAIN NOTED, KEPT CLEAN AND DRY, EPISODE OF RESIST CARE, AND AGITATION.
[2016-07-23 07:17] LABS: BASOPHILS % (AUTO) 0.8 % (0.0-2.0); EOSINOPHILS # (AUTO) 0.2 K/uL (0.0-0.7); EOSINOPHILS % (AUTO) 3.3 % (0.0-7.0); HEMATOCRIT 41.8 % (37-47); HEMOGLOBIN 13.5 G/DL (12.0-16.0); LYMPHOCYTES % (AUTO) 19.5 % (20.5-51.5); MEAN CORPUSCULAR HEMOGLOBIN 28.3 UUG (27.0-31.0); MEAN CORPUSCULAR HGB CONC 32 g/dL (32.0-37.0); MEAN CORPUSCULAR VOLUME 87.5 FL (81.0-99.0); MONOCYTES # (AUTO) 0.3 K/UL (0.1-1.30); MONOCYTES % (AUTO) 6.6 % (0.0-11.0); NEUTROPHILS # (AUTO) 3.8 K/UL (1.8-8.9); NEUTROPHILS % (AUTO) 69.8 % (38.5-71.5); PLATELET COUNT (AUTO) 264 K/UL (150-450); RED BLOOD CELL COUNT(AUTO) 4.77 MIL/UL (4.2-5.4); RED CELL DISTRIBUTION WIDTH 14.4 % (11.5-14.5); WHITE BLOOD COUNT (AUTO) 5.3 K/UL (4.0-11.2)
[2016-07-23 07:30] LABS: ALBUMIN 2.9 g/dL (3.4-5.0); BILIRUBIN,TOTAL 0.5 mg/dL (0.2-1.0); CREATININE 0.7 mg/dL (0.6-1.3); MAGNESIUM 1.8 mg/dL (1.8-2.4); PHOSPHOROUS 3.4 mg/dL (2.5-4.9); POTASSIUM 3.9 mmol/L (3.5-5.1); TOTAL PROTEIN, SERUM 7.7 g/dL (6.4-8.2)
[2016-07-23 07:53] LABS: FOLIC ACID 12.1 NG/ML (8.6-58.9)
[2016-07-23] MEDS: AMLODIPINE 2.5 MG TABLET PO SCH (08:00)
[2016-07-23] MEDS: BENAZEPRIL HCL 20 MG TABLET PO SCH (08:01)
[2016-07-23] MEDS: CYANOCOBALAMIN 1,000 MCG TABLET PO SCH (08:01)
[2016-07-23] MEDS: DIVALPROEX 125 MG TABLET.DR PO SCH ×2 (08:01→12:03)
[2016-07-23] MEDS: CHOLECALCIFEROL 1,000 UNIT TABLET PO SCH (08:01)
[2016-07-23] MEDS: CLOPIDOGREL 75 MG TABLET PO SCH (08:01)
[2016-07-23] MEDS: QUETIAPINE FUMARATE 25 MG TABLET PO SCH (08:01)
[2016-07-23] MEDS: MULTIVITAMINS,THERAPEUTIC TABLET PO SCH (08:01)
[2016-07-23] MEDS: Z GUARD REMEDY PASTE 57 GM TUBE TOP SCH (08:22)
[2016-07-23] MEDS ORDERED: ESCITALOPRAM OXALATE 10 MG TABLET PO SCH (09:00)
[2016-07-23 09:10] LABS: THYROID STIMULATING HORMONE 1.596 mIU/mL (0.358-3.740)
[2016-07-23 11:02] VITALS: BP 117/61
[2016-07-23] MEDS: LORAZEPAM 0.5 MG TABLET PO PRN (12:03)
--- NOTE | 2016-07-23 12:36 | NUR ---
The patient will be discharged today back to [facility] [ ; [address], [place] [address]] per Dr. Gardner. Spoke to both her daughter, Madyson [ ], and son, Kajal [ ], and they were both in agreement with her discharge. Kajal will be picking her up via private car. Also informed Renata, department administrator of [facility], that the patient will return to their facility today and she confirmed admitting. Her nurse, Rachel, is aware of her discharge plan.
--- NOTE | 2016-07-23 13:28 | NUR ---
D/C ORDERS RECEIVED NOTED AND CARRIED OUT.D/C INSTRUCTIONS AND RN REPORT GIVEN OVER LONGTERM.D/C [place].PT LEFT THE FACILITY VIA PRIVATE CAR IN STABLE CONDITION.
[2016-07-25 08:06] LABS: A/G RATIO 0.8 (0.7-1.7); ALPHA-1-GLOBULIN 0.3 g/dL (0.0-0.4); ALPHA-2-GLOBULIN 0.9 g/dL (0.4-1.0); BETA GLOBULIN 0.8 g/dL (0.7-1.3); GAMMA GLOBULIN 1.9 g/dL (0.4-1.8); GLOBULIN, TOTAL 3.9 g/dL (2.2-3.9); M-SPIKE Not Observed g/dL (Not Observed)
== END 2016-07-23 13:25 | DRG 723 ==
LOC: ER 18:51 → TELE 21:53 → MED 07-22 15:39
PROVIDERS: ADMIT Internal Medicine Nephrology; ATTEND Internal Medicine Nephrology
DX: B34.9 Viral infection, unspecified (principal); G93.40 Encephalopathy, unspecified; R53.2 Functional quadriplegia; F03.90 Unspecified dementia, unspecified severity, without behavioral disturbance, psychotic disturbance, mood disturbance, and anxiety; I11.0 Hypertensive heart disease with heart failure; I50.32 Chronic diastolic (congestive) heart failure; J44.9 Chronic obstructive pulmonary disease, unspecified; E88.09 Other disorders of plasma-protein metabolism, not elsewhere classified; K86.89 Other specified diseases of pancreas; E78.5 Hyperlipidemia, unspecified; F41.9 Anxiety disorder, unspecified; F32.9 Major depressive disorder, single episode, unspecified; R53.1 Weakness
CPT/HCPCS: 36415; 36600; 51702; 70030-TC; 70450; 71010; 71275; 82746; 83605; 83735; 84100; 84155; 84165; 84443; 85025; 86592; 87040; 87086; 92506; 93005; A4663; C1758; J1200; J3490; J7050; Q9967